=== PATIENT | female | born 1995 | race Two or more races ===

== ENCOUNTER 2021-03-28 13:56 | Emergency (ER) | payer MEDICAID ==
[~2021-03-28] VITALS: Ht 167.6 cm; Wt 53.1 kg
[2021-03-28] MEDS ORDERED: predniSONE 20 MG TABLET ONE (14:43)
[2021-03-28] MEDS ORDERED: IPRATROPIUM NEB FS 0.5 MG/2.5 ML AMPUL.NEB ONE (14:56)
[2021-03-28] MEDS ORDERED: ALBUTEROL FS 2.5 MG/3 ML VIAL.NEB ONE (14:56)
[2021-03-28] MEDS ORDERED: predniSONE 20 MG TABLET PO ONE (15:00)
[2021-03-28] MEDS ORDERED: IPRATROPIUM NEB FS 0.5 MG/2.5 ML AMPUL.NEB NEB ONE (15:00)
[2021-03-28] MEDS ORDERED: ALBUTEROL FS 2.5 MG/3 ML VIAL.NEB NEB ONE (15:00)
--- NOTE | 2021-03-28 15:00 | NUR ---
Patient came in to the er c/o worsening sob x 4 days. asthma, inhaler not helping. also c/o dry cough. On room air, breathing evenly and unlabored. Connected to the monitor and pulse ox. kept comfortable, will continue to monitor accordingly.
[2021-03-28] MEDS ORDERED: ALBU8.5H8 INH (15:40)
[2021-03-28] MEDS ORDERED: PRED50TA PO (15:40)
[2021-03-28 15:59] VITALS: BP 115/77
--- NOTE | 2021-03-28 16:02 | NUR ---
Patient discharged to home in stable condition. Written and verbal after care instructions given. Patient verbalizes understanding of instruction.
== END 2021-03-28 16:02 | disposition home or self-care (01) ==
LOC: ER 14:02
DX: J45.901 Unspecified asthma with (acute) exacerbation (principal)
CPT/HCPCS: 94640; 99283; J7512